=== PATIENT | female | born 1965 | race Caucasian/White ===

== ENCOUNTER 2016-11-26 17:39 | Emergency (ER) | payer SELFPAY ==
[~2016-11-26] VITALS: Ht 154.9 cm; Wt 66.0 kg
[2016-11-26 17:55] VITALS: BP 116/79
== END 2016-11-26 23:36 | disposition left against medical advice (07) ==
LOC: ER 17:41
DX: R42 Dizziness and giddiness (principal); R10.9 Unspecified abdominal pain; R11.10 Vomiting, unspecified; Z53.21 Procedure and treatment not carried out due to patient leaving prior to being seen by health care provider
CPT/HCPCS: 82962